=== PATIENT | male | born 1940 | race Caucasian/White ===

== ENCOUNTER 2017-02-23 19:29 | Emergency (ER) | payer MEDICARE ==
[2017-02-23 19:42] VITALS: BP 121/62
--- NOTE | 2017-02-23 19:53 | UC ---
Knee Pain HPI - HPI Summary HPI Summary: Right knee pain x 1 day was hit by a iron svetlana while he was mowing + pain , swelling of the right knee difficulty waling - History of Current Complaint Chief Complaint: UCLowerExtremity Stated Complaint: RIGHT KNEE PAIN Time Seen by Provider: 02/23/17 19:33 Hx Obtained From: Patient Onset/Duration: Sudden Onset, Lasting Hours - 3, Still Present Severity Initially: Severe Severity Currently: Severe Character: Throbbing Aggravating Factor(s): Movement, Weight Bearing Alleviating Factor(s): Rest, Cold Associated Signs And Symptoms: Positive: Swelling, Weakness Able to Bear Weight: Yes - Allergies/Home Medications Allergies/Adverse Reactions: Allergies Allergy/AdvReac Type Severity Reaction Status Date / Time No Known Allergies Allergy Verified 02/23/17 19:35 Home Medications: Home Medications Ibuprofen TAB* [Advil TAB*] 400 mg PO Q6H PRN 02/23/17 [History Confirmed ] PMH/Surg Hx/FS Hx/Imm Hx - Additional Past Medical History Additional PMH: end stage kidney disease - Surgical History Surgical History: Yes Surgery Procedure, Year, and Place: aneurysm repair, left knee surgery - Family History Known Family History: Positive: Hypertension - Social History Alcohol Use: None Substance Use Type: None Smoking Status (MU): Heavy Every Day Tobacco Smoker Type: Cigarettes Amount Used/How Often: 1 PPD Length of Time of Smoking/Using Tobacco: 60 years Review of Systems Constitutional: Negative Skin: Negative Eyes: Negative ENT: Negative Respiratory: Negative Cardiovascular: Negative Gastrointestinal: Negative Genitourinary: Negative Motor: Negative Neurovascular: Negative Musculoskeletal: Arthralgia - right knee pain Neurological: Negative Psychological: Negative All Other Systems Reviewed And Are Negative: Yes Physical Exam Triage Information Reviewed: Yes Appearance: Well-Appearing, No Pain Distress, Well-Nourished Vital Signs: Initial Vital Signs Temp 99.5 F 02/23/17 19:36 Pulse 93 02/23/17 19:36 Resp 16 02/23/17 19:36 BP 121/62 02/23/17 19:36 Pulse Ox 98 02/23/17 19:36 Vital Signs Reviewed: Yes Eyes: Positive: Conjunctiva Clear ENT: Positive: Normal ENT inspection, Hearing grossly normal, Pharynx normal Neck: Positive: Supple, Nontender, No Lymphadenopathy Respiratory: Positive: Chest non-tender, Lungs clear, Normal breath sounds Cardiovascular: Positive: RRR, No Murmur, Pulses Normal Musculoskeletal: Positive: Other: - right knee: + swelling, + mild effusion , tenderness anterior knee, good ROM on flexion and extension Knee Pain Course/Dx - Differential Dx/Diagnosis Provider Diagnoses: contusion right knee Discharge - Discharge Plan Condition: Stable Disposition: HOME Patient Education Materials: Knee Pain (ED) Referrals: Jermaine Diaz MD [Medical Doctor] - 5 Days
--- NOTE | 2017-02-23 20:18 | RAD ---
INDICATION: Right knee injury COMPARISON: None TECHNIQUE: AP, lateral, tunnel, and sunrise views were obtained. FINDINGS: There is spurring tibial spines and there is minor medial joint space narrowing. There is no acute bony change. There are vascular microcalcifications. There is no foreign body. IMPRESSION: MINOR OSTEOARTHRITIS.
== END 2017-02-23 20:41 | disposition home or self-care (01) ==
LOC: UCCORT 19:29
DX: J20.9 Acute bronchitis, unspecified (principal)
CPT/HCPCS: 99201; G0463